=== PATIENT | female | born 1955 | race Caucasian/White ===

== ENCOUNTER → 2021-10-31 | Outpatient (CLI) | payer OTHER ==
[~2021-10-31] MED LIST: METOPROLOL SUCC25 MG PO
[2021-10-31 12:20] LABS: HEMOGLOBIN 12.9 gm/dl (12.3-15.3); RED BLOOD COUNT 4.4 M/UL (4.00-5.10); WHITE BLOOD COUNT 8.7 K/UL (4.5-11.0)
[2021-10-31 12:44] LABS: BUN/CREATININE RATIO 32 (0-10)
== END ==
LOC: OPSV2 10:56
PROVIDERS: Obstetrics & Gynecology
DX: Z01.812 Encounter for preprocedural laboratory examination (principal); N95.0 Postmenopausal bleeding
CPT/HCPCS: 36415; 80053; 81001; 85025

== ENCOUNTER → 2021-11-09 | Day surgery (SDC) | payer OTHER ==
[~2021-11-09] MED LIST changes: +MULTI-VITAMIN1 EACH PO; +NAPROXEN500 MG PO
== END | disposition home or self-care (01) ==
LOC: OR 05:27
DX: N84.0 Polyp of corpus uteri (principal)
CPT/HCPCS: 71045; 93005; J0690; J1100; J1885; J2001; J2250; J2370; J2405; J2704